=== PATIENT | female | born 1960 | race Caucasian/White ===

== ENCOUNTER → 2017-01-20 09:48 | Outpatient (CLI) | payer BC ==
[2012-04-01 09:52] VITALS: BMI 28.5
== END | disposition home or self-care (01) ==
LOC: D.MRI 01-19 10:30
DX: M77.11 Lateral epicondylitis, right elbow (principal)

== ENCOUNTER 2017-01-30 11:29 | Day surgery (SDC) | payer BC ==
[~2017-01-30] VITALS: Ht 162.6 cm; Wt 78.9 kg
[2017-01-30] MEDS ORDERED: OMEPRAZOLE40 MG PO (12:14)
[2017-01-30] MEDS ORDERED: MOBIC7.5 MG PO (12:15)
[2017-01-30] MEDS ORDERED: BYSTOLIC20 MG PO (12:15)
[2017-01-30] MEDS ORDERED: FUROSEMIDE20 MG PO (12:16)
[2017-01-30] MEDS ORDERED: K-TAB10 MEQ PO (12:17)
[2017-01-30 13:03] LABS: HEMATOCRIT 43.3 % (36.0-48.0); HEMOGLOBIN 14.1 g/dL (12-16); MCH 29.9 pg (26.0-34.0); MCHC 32.6 g/dL (31.0-37.0); MCV 91.9 fL (80.0-100.0); MEAN PLATELET VOLUME 10.2 fL (7.4-10.4); RBC 4.71 10x6/uL (4.00-5.40); RDW 14.7 % (11.5-14.5); WBC 9.2 10x3/uL (4.8-10.8)
[2017-01-30 13:43] LABS: ANION GAP 8.1 mmol/L (8-16); CALCIUM 9.6 mg/dL (8.5-10.1); CARBON DIOXIDE 32.4 mmol/L (21.0-32.0); CREATININE - SERUM 0.9 mg/dL (0.6-1.3); POTASSIUM - SERUM 4.5 mmol/L (3.5-5.1)
[2017-02-02 14:14] VITALS: BP 102/58; Ht 162.6 cm; Wt 78.9 kg
[2017-02-02] MEDS ORDERED: HYDROCODONE-APA1 TAB PO (17:09)
--- NOTE | 2017-02-02 19:03 | NUR ---
PHENERGAN 25 MG PO #[id number] CALLED TO [facility], TO PHARMACY RU[facility]
--- NOTE | 2017-02-06 14:19 | OP ---
PATIENT NAME: ROSALVA NOLAND MEDICAL RECORD: [id number] :56 LOCATION:D.[facility] ADMISSION DATE: SURGEON: SIERRA PEARSON MD DATE OF OPERATION: 02/02/2017 PREOPERATIVE DIAGNOSIS: Recalcitrant right lateral epicondylitis. POSTOPERATIVE DIAGNOSIS: Recalcitrant right lateral epicondylitis. PROCEDURES: Open excisional debridement to include tendon as well as bone with reapproximation on his lateral epicondylectomy with repair of the ruptured tendon. OPERATIVE SUMMARY IN DETAIL: After obtaining the appropriate preoperative orthopedic surgery consent as well as anesthetic consultation, evaluation and clearance, the patient was brought to the operating room and placed on the operating table in supine position. After general laryngeal mask was administered, tourniquet was placed about the proximal aspect of the right upper extremity. Right upper extremity was then prepped and draped in routine sterile fashion. The arm was elevated and exsanguinated, tourniquet inflated to 350 mmHg. An incision made directly over the lateral epicondyle. This was taken down to the mechanism deep, which was found to be avulsed from the bone. Elliptical incision of the tendinosis was performed. The lateral epicondyle was exposed in its entirety and a small sagittal saw was used to excise the lateral tip, creating a bleeding bone bed. At this point, a JuggerKnot from [email or web address] was utilized and pulled tightly. The sutures for which were used to reapproximate bleeding, clean, healthy tissue back to the lateral epicondyle. Wound was copiously irrigated and closed with 2-0 Vicryl followed by 4-0 Prolene in running fashion. Sterile dressings were applied. Tourniquet was deflated. The patient was awakened and taken to the recovery room in stable condition. All final needle and sponge counts were correct. TRANSINT:[id number] Voice Confirmation ID: [id number] DOCUMENT ID: [id number] SIERRA PEARSON MD at 1419 CC: [id number] DICTATION DATE: 02/06/17915 DOMESTIC HELPER: 02/06/17 1226 [facility] 02/02/17 [place] [address]
== END 2017-02-02 18:40 | disposition home or self-care (01) ==
LOC: D.OPS 11:29 → D.PAN 11:29 → D.OPS 02-02 11:15 → D.PAN 02-02 13:00 → D.OPS 02-02 15:15
PROVIDERS: Anesthesiology
DX: M77.11 Lateral epicondylitis, right elbow (principal); I10 Essential (primary) hypertension; Z01.812 Encounter for preprocedural laboratory examination

== ENCOUNTER 2017-02-22 12:57 | Inpatient (IN) | payer BC ==
[~2017-02-22] VITALS: Ht 162.6 cm; Wt 78.9 kg
[~2017-02-22 12:57] MED LIST: BYSTOLIC20 MG PO; FUROSEMIDE20 MG PO; HYDROCODONE-APA1 TAB PO; K-TAB10 MEQ PO; MOBIC7.5 MG PO; OMEPRAZOLE40 MG PO
[2017-02-22 14:21] LABS: BASOPHILS 0.2 % (0-2); EOSINOPHILS 3.2 % (0-7); HEMATOCRIT 40.6 % (36.0-48.0); HEMOGLOBIN 13.3 g/dL (12-16); IMMATURE GRANULOCYTES 0.2 % (0-5); MCH 29.9 pg (26.0-34.0); MCHC 32.8 g/dL (31.0-37.0); MCV 91.2 fL (80.0-100.0); MEAN PLATELET VOLUME 10.1 fL (7.4-10.4); NEUTROPHILS 69.4 % (40-80); PLATELET COUNT 253 10x3/uL (130-400); RBC 4.45 10x6/uL (4.00-5.40); RDW 14.2 % (11.5-14.5); WBC 13.6 10x3/uL (4.8-10.8)
[2017-02-22 14:32] LABS: INR 0.96 (0.85-1.17); PROTIME 12.6 SECONDS (11.6-15.0)
[2017-02-22 14:37] LABS: ALBUMIN 3.3 g/dL (3.4-5.0); ANION GAP 13.4 mmol/L (8-16); BILIRUBIN - TOTAL 0.26 mg/dL (0.2-1.3); CALCIUM 9.1 mg/dL (8.5-10.1); CARBON DIOXIDE 27.3 mmol/L (21.0-32.0); CREATININE - SERUM 0.9 mg/dL (0.6-1.3); MAGNESIUM - SERUM 2.2 mg/dL (1.8-2.4); POTASSIUM - SERUM 3.7 mmol/L (3.5-5.1); PROTEIN - SERUM 7.8 g/dL (6.4-8.2)
--- NOTE | 2017-02-22 15:15 | NUR ---
PT REPORT REC'D FROM GUS MAXWELL. ROOM READY AND AWAITING PT ARRIVAL.
[2017-02-22 17:52] VITALS: BMI 29.9
[2017-02-22 19:00] VITALS: BP 123/62
--- NOTE | 2017-02-22 19:35 | NUR ---
RECIEVED SHIFT REPORT. PT IS LYING IN BED. ALERT AND ORIENTED AND ABLE TO VERBALIZE NEEDS. IV IS PATENT AND SALINE LOC AT THIS TIME. PT IS AMBULATORY BUT WAS INSTRUCTED TO CALL FOR ANY ASSISTANCE NEEDED. DRESSING TO RIGHT ELBOW C/D/I. PT STATES PAIN IS 7/10. NO NEEDS ARE VERBALIZED AT THIS TIME. WILL CONTINUE TO MONITOR. VISITOR IS AT THE BEDSIDE. SIDE RAILS ARE UP X 2. BED IS IN LOWEST POSITION. CALL LIGHT IS WITHIN REACH.
--- NOTE | 2017-02-22 21:43 | NUR ---
SHIFT ASSESSMENT COMPLETED. PT C/O PAIN 04/30. ADMINISTERED PRESCRIBED PRN PERCOCET PER ORDER. DENIES FURTHER NEEDS. WILL MONITOR. VISITOR AT BEDSIDE. SIDE RAILS X 2. BED LOW. CALL LIGHT IN REACH.
[2017-02-23] VITALS: BP 112/53
[2017-02-23 04:00] VITALS: BP 137/58
--- NOTE | 2017-02-23 07:45 | NUR ---
PT ASSESSMENT COMPLETE AWAKE AND ALERT ORIENTED X 3 LUNGS CLEAR BILATERALLY HAS DRESSING NOTED TO RIGHT ELBOW. VOICES ALL NEEDS TO STAFF CALL LIGHT IN REACH FAMILY AT BEDSIDE. ALL ADLS WITH STANDBY ASSIST OF STAFF. HAS LEFT HAND SALINE LOCK NOTED 22 GA SITED PER PT FLOW NURSE LAST NIGHT. NPO FOR I&D OF RIGHT ELBO POST SURGICAL INFECTION SITE WITH DR PEARSON TODAY. WILL MONITOR. ALL QUESTIONS ANSWERED OR DEFERRED TO TUFTER OPERATOR AT BEDSIDE AT 0815.
[2017-02-23 08:27] VITALS: BP 134/52
--- NOTE | 2017-02-23 08:35 | NUR ---
PATIENT ALERT IN MID MADRIGAL POSITION VISITING WITH GUEST. NO SIGNS OF DISTRESS NOTED. SIDE RAILS UP X2. BED IN LOW POSITION. CALL LIGHT IN REACH.
[2017-02-23 11:49] VITALS: BP 112/58
--- NOTE | 2017-02-23 14:30 | NUR ---
Patient Name: ROSALVA NOLAND Admission Status: ER Accout number: [id number] Admission Date: 02-22-2017 : 1960 Admission Diagnosis: Attending: QAMAR Current LOS: 1 Anticipated DC Date: 02-26-2017 Planned Disposition: Home with Home Health Primary Insurance: [employer] O Discharge Planning Comments: CM MET WITH PATIENT REGARDING D/C NEEDS AND PLANS. PATIENT STATED SHE LIVES ALONE AND HER FRIEND (RICKIE) WILL DRIVE HER HOME AT DISCHARGE. PATIENT STATED SHE HAS 1 STEP TO ENTER HOME AND NO STAIRS INSIDE. PATIENTS PCP IS DR. TOMAS AND PHARMACY IS [facility]. PATIENT IS INDEPENDENT WITH HER CARE AND HAS A WALKER AND CANE AT HOME. PATIENT SIGNED THE JEREMIE FORM WITH [employer] AND CM IS WAITNG TO SEE IF HER INSURANCE IS ACCEPTED. CM WILL CONTINUE TO FOLLOW PATIENT WITH D/C NEEDS AND PLANS. PCP DR. TOMAS [facility] [phone] RICKIE YARBROUGH (FRIEND) [phone] Financial Retirement Plan Specialist: Meagan Mcgee Is the patient Alert and Oriented? Yes 0 * How many steps to enter\exit or inside your home? 1 0 * PCP DR. TOMAS 0 * Pharmacy [facility] 0 * Preadmission Environment Home Alone 0 * ADLs Independent 0 * Equipment Cane Walker 0 * List name and contact numbers for known caregivers / representatives who currently or will assist patient after discharge: RICKIE YARBROUGH (FRIEND) [phone] 0 * Community resources currently utilized Other 0 * Additional services required to return to the preadmission environment? Yes 0 * Can the patient safely return to the preadmission environment? Yes 0 * Has this patient been hospitalized within the prior 30 days at any hospital? No 0 Grand Total: 0
[2017-02-23 14:54] VITALS: Ht 162.6 cm; Wt 78.9 kg
[2017-02-23 15:17] VITALS: BP 97/64
--- NOTE | 2017-02-23 15:42 | NUR ---
RECIEVED FROM RECOVERY AWAKE AND ALERT WOUND VAC NOTED TO RIGHT ELBOW PT WITH O2 AT 3LPM PER NASAL CANULA TITRATE TO KEEP SATS GREATER THAN 92%
[2017-02-23 18:00] VITALS: BP 101/39
--- NOTE | 2017-02-23 19:00 | NUR ---
PATIENT IN BED WATCING TV. HOB 30 DEGREES. AAOX4. RR EVEN AND UNLABORED. 0 S/S OF DISTRESS. STATES PAIN IS A 12/10. IV TO LEFT HAND S/L. WOUND VAC TO RIGHT ELBOW. SCD'S IN ROOM BUT OFF. FRIEND AT BEDSIDE. SRX2. BED LOW. CALL LIGHT WITHIN REACH.
--- NOTE | 2017-02-23 20:00 | NUR ---
NORCO GIVEN FOR PAIN. PATIENT VERY WORRIED ABOUT HER IV. SHE "DOES NOT WANT IT TO GO BAD AND DOES NOT WANT TO GET STUCK AGAIN." SHE IS DEMANDING STEPS BE TAKEN TO PRESERVE IT. ARM BOARD PLACED BENEATH AND WRIST SECURED WITH KERLIX.
--- NOTE | 2017-02-24 02:00 | NUR ---
PATIENT VERY UPSET AND ANXIOUS. SHE IS TEARFUL STATING THAT SHE "DOES NOT HAVE ANY CONFIDENCE IN THE HOSPITAL OR DR. PEARSON." SHE WANTS TO KNOW HER CARE PLAN AND SAYS SHE "WANTS TO BE INVOLVED IN HER CARE." SHE IS ALSO UPSET THAT SHE DID NOT GET A PICC LINE AND HAD TO DEMAND TO SPEAK TO DR. PEARSON BEFORE THE PROCEDURE. PATIENT IS STATING THAT SHE WANTS TO "LEAVE THE HOSPITAL AND GO TO A DIFFERENT FACILIY." SPOKE WITH PATIENT FOR ABOUT 45 MINUTES. EXPLAINED TO PATIENT THAT THERE WAS A CARE PLAN FOR HER BUT THAT SHE HAD TO BE PATIENT WITH THE PROCESS.
--- NOTE | 2017-02-24 02:45 | NUR ---
PERCOCET GIVEN FOR PAIN.
[2017-02-24 04:00] VITALS: BP 96/34
[2017-02-24 08:48] VITALS: BP 122/57
[2017-02-24 09:12] LABS: BASOPHILS 0.3 % (0-2); EOSINOPHILS 5.6 % (0-7); HEMATOCRIT 38.3 % (36.0-48.0); HEMOGLOBIN 12.4 g/dL (12-16); IMMATURE GRANULOCYTES 0.2 % (0-5); LYMPHOCYTES 22.1 % (15-50); MCH 29.7 pg (26.0-34.0); MCHC 32.4 g/dL (31.0-37.0); MCV 91.8 fL (80.0-100.0); MEAN PLATELET VOLUME 9.6 fL (7.4-10.4); MONOCYTES 5.2 % (2-11); NEUTROPHILS 66.6 % (40-80); PLATELET COUNT 247 10x3/uL (130-400); RBC 4.17 10x6/uL (4.00-5.40); RDW 14.2 % (11.5-14.5)
[2017-02-24 09:17] LABS: WBC 9.1 10x3/uL (4.8-10.8)
[2017-02-24 12:35] VITALS: BP 85/46
--- NOTE | 2017-02-24 13:25 | NUR ---
CM WAS CALLED TO PATIENTS ROOM NUMEROUS TIMES THIS AM. PATIENT STATED SHE WANTED TO SPEAK TO [place] AND CM CALLED KAY AND SHE AGREED TO CALL PATIENT. WHEN KAY CALLED PATIENT THE PATIENT STATED SHE DID NOT WANT TO TALK SHE WAS ABOUT TO EAT TO CALL BACK. PATIENT WAS UPSET BECAUSE HER INSURANCE WAS ONLY PAYING 80 % OF HOME HEALTH AND SHE WOULD OWE 20%. CM EXPLAINED WE COULD NOT DO ANYTHING ABOUT THAT. PATIENT STATED THAT SHE KNEW IF WE WOULD CONTACT THE RIGHT PERSON THEY WOULD THROW OUT THE 20%. PATIENT STATED THAT SHE KNEW HOW ALL THIS WORKED. PATIENT ALSO STATED SHE WANTED TO GO HOME TODAY AND SHE WAS FED UP WITH STAYING HERE. CM EXPLAINED THAT WE NEEDED TO KNOW WHAT THE CULTURE WAS GROWING TO HAVE THE CORRECT IV ABX. PATIENT STATED SHE COULD GO HOME AND WE COULD WAIT ON THE GROWTH!!! ANGEL SPOKE WITH HER AGAIN REGARDING THE NEED FOR THE CORRECT ABX THERAPY AND SHE STATED I AM JUST GOING TO TOUGH IT OUT AND STAY HERE. THEN SHE ASKED ABOUT A SNF AND WANTED [facility] AND ANGEL CALLED AND IS OUT OF NETWORK FOR THEM. ANGEL SPOKE WITH PATIENT AND SHE STATED SHE WOULD JUST GO HOME AND HAVE SOMEONE HELP HER. PATIENTS FRIEND STATED OUTSIDE OF HER ROOM THAT SHE WAS SORRY FOR HER FRIENDS ATTITUDE. CM STATED THAT WAS OK DON'T WORRY ABOUT IT. ANGEL HAS CONTACTED [facility] ([facility]) FOR A TYPEWRITER ASSEMBLY AND PARTS INSPECTOR FROM HER INSURANCE TO CONTACT HER. ANGEL WILL CONTINUE TO FOLLOW PATIENT WITH D/C NEEDS AND PLANS.
[2017-02-24 17:02] VITALS: BP 110/50
--- NOTE | 2017-02-24 19:40 | NUR ---
RECIEVED SHIFT REPORT. PT IS LYING IN BED. ALERT AND ORIENTED AND ABLE TO VERBALIZE NEEDS. IV IS PATENT AND FLUIDS AND SALINE LOC AT THIS TIME. PT IS AMBULATORY BUT WAS INSTRUCTED TO CALL FOR ANY ASSISTANCE NEEDED. WOUND VAC TO RIGHT ELBOW INTACT AND DRESSING ALL C/D/I. PT STATES PAIN IS 8/10. ISOLATION PRECAUTIONS ARE IN PLACE. SCD'S ARE OFF AT THIS TIME. NO NEEDS ARE VERBALIZED AT THIS TIME. VISITOR IS AT THE BEDSIDE. SIDE RAILS ARE UP X 2. BED IS IN LOWEST POSITION. CALL LIGHT IS WITHIN REACH.
--- NOTE | 2017-02-24 20:24 | NUR ---
SHIFT ASSESSMENT COMPLETED. ANTIBIOTIC HUNG PER ORDER. PT C/O PAIN 04/30. ADMINISTERED PRESCRIBED PRN PERCOCET PER ORDER. NO FURTHER NEEDS AT THIS TIME. WILL MONITOR. VISITOR AT BEDSIDE. SIDE RAILS X 2. BED LOW. CALL LIGHT IN REACH.
[2017-02-25 00:04] VITALS: BP 109/55
[2017-02-25 04:00] VITALS: BP 105/55
[2017-02-25 06:21] LABS: ANION GAP 9.1 mmol/L (8-16); CALCIUM 8.7 mg/dL (8.5-10.1); CARBON DIOXIDE 31.1 mmol/L (21.0-32.0); CREATININE - SERUM 0.9 mg/dL (0.6-1.3); POTASSIUM - SERUM 4.2 mmol/L (3.5-5.1)
--- NOTE | 2017-02-25 07:15 | NUR ---
PATIENT RESTING QUIETLY IN HER BED WITH HER EYES CLOSED. NO S/S OF DISTRESS NOTED. FRIEND AT PATIENT'S BEDISDE. CONTACT ISOLATION PRECAUTIONS IN PLACE. CALL LIGHT IN PATIENT'S REACH. WILL MONITOR PATIENT.
[2017-02-25 08:39] VITALS: BP 123/54
--- NOTE | 2017-02-25 08:45 | NUR ---
PATIENT RESTING IN HER BED. FRIEND AT THE BEDSIDE. PATIENT IS AWAKE, ALERT, AND ORIENTED X4. NO COMPLAINTS OF PAIN AT PRESENT TIME. ASSESSMENT COMPLETED. SEE FLOWSHEET FOR DETAILS. SCHEDULED VANCOMYCIN IVPB AND SCHEDULED PROTONIX IV GIVEN TO PATIENT. PATIENT DENIES ANY NEEDS AT PRESENT TIME. WOUND VAC IN PLACE TO PATIENT'S RIGHT ELBOW. CALL LIGHT IN PATIENT'S REACH. WILL MONITOR PATIENT.
[2017-02-25] MEDS ORDERED: HYDROCODONE-APA1 TAB PO (09:02)
[2017-02-25] MEDS ORDERED: Ancef 2 GM/Dextrose IV (14:45)
--- NOTE | 2017-02-25 14:55 | NUR ---
PATIENT SITTING UP ON THE SIDE OF THE BED. PATIENT IS EXCITED ABOUT GETTING TO GO HOME THIS AFTERNOON. PATIENT COMPLAINS OF PAIN IN RIGHT ELBOW WHERE HER INCISION IS. PAIN LEVEL A "4" ON A 0-10 SCALE. PRN PERCOCET GIVEN TO PATIENT FOR PAIN. CALL LIGHT IN PATIENT'S REACH. WILL MONITOR.
--- NOTE | 2017-02-25 15:47 | NUR ---
CM REASSESSMENT NOTE: PATIENT IS DISCHARGING HOME TODAY WITH [facility] TO DO IV ABX AND WOUND VAC CARE. WOUND VAC HAS BEEN CHANGED TODAY AND [facility] AWARE OF THAT. CM HAS CONTACTED [facility] AND THEY HAVE SPOKE WITH [employer] [employer]. PATIENT AWARE TO HAVE ANOTHER PERSON THAT IS TEACHABLE FOR THE IV ABX THERE TONIGHT. [employer] SUPPLIED THE WOUND VAC.
--- NOTE | 2017-02-25 15:57 | NUR ---
WOUND CARE/WOUND VAC DRESSING CHANGE: WOUND VAC DRESSING CHANGE WOUND TYPE: SURGICAL WOUND LOCATION: RIGHT ELBOW WOUND AGE IN MONTHS: DEBRIDEMENT ATTEMPTED IN LAST 10 DAYS? DATE/TYPE: SERIAL DEBRIDEMENTS REQUIRED? NO MEASUREMENT DATE: 02/25/17 4.5CM X 1.5CM X 1CM FULL THICKNESS? YES MUSCLE, TENDON OR BONE EXPOSED? NO UNDERMINING? NO TUNNELING/SINUS? NO APPEARANCE OF WOUND BED : RED/BEEFY EXUDATE (AMOUNT, COLOR, ODOR): SMALL/BLOODY/ NO ODOR FOAM TYPE: BLACK # OF PIECES USED: 1 PC EDUCATION: FUNCTIONS OF WOUND VAC/USE OF HOME VAC/ON/OFF/PAUSE/HOW TO CHANGE CANISTERS/BATTERY LIFE/HOW TO CHARGE/TROUBLE SHOOTING: ALARMS /END OF THERAPY (WHAT TO RETURN AND HOW TO SEND TO [facility]) PT IS VERY PERSEPTIVE TO ALL TEACHING.
--- NOTE | 2017-02-25 16:01 | NUR ---
SALINE LOCK DC'D FROM PATIENT'S LEFT HAND. CATHETER TIP STILL INTACT. BANDAID APPLIED.
--- NOTE | 2017-02-25 16:05 | NUR ---
DISCHARGE INSTRUCTIONS VERBALIZED TO PATIENT. PATIENT VERBALIZED UNDERSTANDING AND SIGNED DISCHARGE SHEETS. HYDROCODONE PRESCRIPTION GIVEN TO PATIENT.
--- NOTE | 2017-02-25 16:26 | NUR ---
PATIENT DISCHARGED VIA WHEELCHAIR TO THE CAR. PATIENT'S FRIEND HERE TO DRIVE PATIENT HOME.
--- NOTE | 2017-03-06 15:24 | OP ---
PATIENT NAME: ROSALVA NOLAND MEDICAL RECORD: [id number] :56 LOCATION:[id number] ADMISSION DATE:02/22/17 SURGEON: SIERRA PEARSON MD DATE OF OPERATION: 02/23/2017 PREOPERATIVE DIAGNOSIS: Postoperative infection of the right elbow and joint. POSTOPERATIVE DIAGNOSES: Postoperative infection of the right elbow and joint -- septic elbow arthritis, right. PROCEDURES: 1. Excisional debridement of septic olecranon elbow arthritis. 2. Application of wound VAC. SURGEON: Sierra Pearson MD ANESTHESIA: General. INTRAOPERATIVE COMPLICATIONS: None. SUMMARY OF PATHOLOGIC FINDINGS: Unfortunately, the infection did go down into the elbow joint itself requiring extensive debridement, removal of previously placed sutures and placement of the wound VAC. OPERATIVE SUMMARY IN DETAIL: After obtaining the appropriate preoperative orthopedic surgery consent, as well as anesthetic consultation, evaluation and clearance, the patient was brought to the operating room and placed on the operating table in supine position. After general laryngeal mask was administered, the patient's right upper extremity was prepped and draped in a routine sterile fashion. The previously made incision was opened up and purulence was immediately noted. This was cultured. The incision was carried down to the depths of the wound, which clearly showed the lateral condylar cartilage. All necrotic appearing tissue was removed both sharply with the scalpel, as well as curettage and rongeur. The elbow itself was irrigated copiously using a bulb syringe to irrigate the entire elbow, both the anteriorly and posteriorly. When the purulent-appearing synovial fluid returned clear water, the capsule of the elbow was closed and given the amount of soft tissue damage, I felt that a wound VAC was most appropriate at this point. The wound VAC was applied, the pressure was set to 125 mm continuous suction at medium intensity. The patient at this point was awakened and taken to recovery room in stable condition. All final needle and sponge counts were correct. TRANSINT:[id number] Voice Confirmation ID: [id number] DOCUMENT ID: [id number] SIERRA PEARSON MD at 1524 CC: [id number] DICTATION DATE: 03/05/17 1356 SENIOR USER EXPERIENCE ARCHITECT: 03/06/17 0130 DIS IN 02/25/17 [id number] [place] [address]
== END 2017-02-25 16:26 | disposition home health service (06) | DRG 857 ==
LOC: D.ER 12:57 → OBSVTIME 14:45 → D.MS 14:45
PROVIDERS: Emergency Medicine; ADMIT Orthopaedic Surgery
PROC: 0RBL0ZZ Excision of Right Elbow Joint, Open Approach (ICD-10-PCS; 2017-02-23)
PROC: 05H633Z Insertion of Infusion Device into Left Subclavian Vein, Percutaneous Approach (ICD-10-PCS; principal; 2017-02-24)
DX: T81.4XXA Infection following a procedure, initial encounter (principal); M00.021 Staphylococcal arthritis, right elbow; B95.62 Methicillin resistant Staphylococcus aureus infection as the cause of diseases classified elsewhere; I10 Essential (primary) hypertension; J45.909 Unspecified asthma, uncomplicated

== ENCOUNTER → 2017-03-02 18:23 | Outpatient (CLI) | payer BC ==
[2017-02-23 14:54] VITALS: BMI 29.8
[~2017-03-02 18:23] MED LIST changes: +Ancef 2 GM/Dextrose IV
[2017-03-02 18:35] LABS: BASOPHILS 0.3 % (0-2); EOSINOPHILS 5.6 % (0-7); HEMATOCRIT 38.8 % (36.0-48.0); HEMOGLOBIN 12.8 g/dL (12-16); IMMATURE GRANULOCYTES 0.3 % (0-5); MCH 29.9 pg (26.0-34.0); MCV 90.7 fL (80.0-100.0); MEAN PLATELET VOLUME 9.8 fL (7.4-10.4); MONOCYTES 6.2 % (2-11); NEUTROPHILS 64.6 % (40-80); RBC 4.28 10x6/uL (4.00-5.40); RDW 13.9 % (11.5-14.5); WBC 11.6 10x3/uL (4.8-10.8)
[2017-03-02 18:59] LABS: C-REACTIVE PROTEIN 1.1 mg/dL (0.0-0.9); CREATININE - SERUM 0.9 mg/dL (0.6-1.3)
[2017-03-02 19:44] LABS: PLATELET COUNT 297 10x3/uL (130-400)
[2017-03-02 19:47] LABS: ERYTHROCYTE SEDIMENTATION RATE 58 mm/hr (0-30)
== END | disposition home or self-care (01) ==
LOC: D.LABREF 18:23
PROVIDERS: Orthopaedic Surgery
DX: T81.4XXA Infection following a procedure, initial encounter (principal)

== ENCOUNTER → 2017-03-09 19:12 | Outpatient (CLI) | payer BC ==
[2017-02-23 14:54] VITALS: BMI 29.8
[2017-03-09 21:00] LABS: BASOPHILS 0.5 % (0-2); EOSINOPHILS 5.2 % (0-7); HEMATOCRIT 44.2 % (36.0-48.0); HEMOGLOBIN 14.3 g/dL (12-16); IMMATURE GRANULOCYTES 0.2 % (0-5); MCH 29.5 pg (26.0-34.0); MCHC 32.4 g/dL (31.0-37.0); MCV 91.3 fL (80.0-100.0); MEAN PLATELET VOLUME 10.3 fL (7.4-10.4); MONOCYTES 8.1 % (2-11); PLATELET COUNT 270 10x3/uL (130-400); RBC 4.84 10x6/uL (4.00-5.40); RDW 14.4 % (11.5-14.5); WBC 9.3 10x3/uL (4.8-10.8)
[2017-03-09 21:17] LABS: C-REACTIVE PROTEIN 0.6 mg/dL (0.0-0.9); CREATININE - SERUM 0.9 mg/dL (0.6-1.3)
[2017-03-09 22:02] LABS: ERYTHROCYTE SEDIMENTATION RATE 30 mm/hr (0-30)
== END | disposition home or self-care (01) ==
LOC: D.LABREF 19:12
PROVIDERS: Orthopaedic Surgery
DX: T81.4XXA Infection following a procedure, initial encounter (principal)

== ENCOUNTER → 2017-03-16 16:23 | Outpatient (CLI) | payer BC ==
[2017-02-23 14:54] VITALS: BMI 29.8
[2017-03-16 17:18] LABS: C-REACTIVE PROTEIN 1.1 mg/dL (0.0-0.9); CREATININE - SERUM 0.8 mg/dL (0.6-1.3)
== END | disposition home or self-care (01) ==
LOC: D.LABREF 16:23
PROVIDERS: Student in an Organized Health Care Education/Training Program
DX: T81.4XXA Infection following a procedure, initial encounter (principal); M86.121 Other acute osteomyelitis, right humerus; Z51.81 Encounter for therapeutic drug level monitoring

== ENCOUNTER → 2017-03-23 18:25 | Outpatient (CLI) | payer BC ==
[2017-02-23 14:54] VITALS: BMI 29.8
[2017-03-23 19:04] LABS: BASOPHILS 0.4 % (0-2); EOSINOPHILS 7.3 % (0-7); HEMATOCRIT 40.6 % (36.0-48.0); HEMOGLOBIN 13.4 g/dL (12-16); IMMATURE GRANULOCYTES 0.1 % (0-5); LYMPHOCYTES 28.2 % (15-50); MCH 30.2 pg (26.0-34.0); MCV 91.4 fL (80.0-100.0); MEAN PLATELET VOLUME 10.7 fL (7.4-10.4); MONOCYTES 7.5 % (2-11); NEUTROPHILS 56.5 % (40-80); PLATELET COUNT 249 10x3/uL (130-400); RBC 4.44 10x6/uL (4.00-5.40); RDW 14.4 % (11.5-14.5); WBC 9.4 10x3/uL (4.8-10.8)
[2017-03-23 20:20] LABS: ERYTHROCYTE SEDIMENTATION RATE 45 mm/hr (0-30)
== END | disposition home or self-care (01) ==
LOC: D.LABREF 18:25
PROVIDERS: Student in an Organized Health Care Education/Training Program
DX: T81.4XXA Infection following a procedure, initial encounter (principal); B95.61 Methicillin susceptible Staphylococcus aureus infection as the cause of diseases classified elsewhere; Z45.2 Encounter for adjustment and management of vascular access device

== ENCOUNTER → 2017-03-30 14:16 | Outpatient (CLI) | payer BC ==
[2017-02-23 14:54] VITALS: BMI 29.8
[2017-03-30 15:28] LABS: BASOPHILS 0.4 % (0-2); EOSINOPHILS 4.7 % (0-7); HEMATOCRIT 40.9 % (36.0-48.0); HEMOGLOBIN 13.3 g/dL (12-16); IMMATURE GRANULOCYTES 0.2 % (0-5); LYMPHOCYTES 24.4 % (15-50); MCHC 32.5 g/dL (31.0-37.0); MCV 92.3 fL (80.0-100.0); MEAN PLATELET VOLUME 10.8 fL (7.4-10.4); MONOCYTES 8.5 % (2-11); NEUTROPHILS 61.8 % (40-80); PLATELET COUNT 207 10x3/uL (130-400); RBC 4.43 10x6/uL (4.00-5.40); RDW 14.6 % (11.5-14.5); WBC 9.2 10x3/uL (4.8-10.8)
[2017-03-30 16:03] LABS: CREATININE - SERUM 0.8 mg/dL (0.6-1.3)
[2017-03-30 16:50] LABS: ERYTHROCYTE SEDIMENTATION RATE 18 mm/hr (0-30)
== END | disposition home or self-care (01) ==
LOC: D.LABREF 14:16
PROVIDERS: Orthopaedic Surgery
DX: T81.4XXA Infection following a procedure, initial encounter (principal); M86.121 Other acute osteomyelitis, right humerus

== ENCOUNTER → 2017-04-06 13:19 | Outpatient (CLI) | payer BC ==
[2017-02-23 14:54] VITALS: BMI 29.8
[2017-04-06 14:02] LABS: C-REACTIVE PROTEIN 5.5 mg/dL (0.0-0.9); CREATININE - SERUM 0.7 mg/dL (0.6-1.3)
== END | disposition home or self-care (01) ==
LOC: D.LABREF 13:19
PROVIDERS: Orthopaedic Surgery
DX: T81.4XXA Infection following a procedure, initial encounter (principal); M86.121 Other acute osteomyelitis, right humerus; I10 Essential (primary) hypertension

== ENCOUNTER → 2017-05-01 14:30 | Outpatient (CLI) | payer BC ==
[2017-02-23 14:54] VITALS: BMI 29.8
[2017-05-01 15:00] LABS: BASOPHILS 0.4 % (0-2); EOSINOPHILS 5.7 % (0-7); HEMATOCRIT 42.1 % (36.0-48.0); HEMOGLOBIN 13.8 g/dL (12-16); IMMATURE GRANULOCYTES 0.1 % (0-5); LYMPHOCYTES 29.1 % (15-50); MCH 29.6 pg (26.0-34.0); MCHC 32.8 g/dL (31.0-37.0); MCV 90.3 fL (80.0-100.0); MEAN PLATELET VOLUME 10.3 fL (7.4-10.4); MONOCYTES 6.2 % (2-11); NEUTROPHILS 58.5 % (40-80); RBC 4.66 10x6/uL (4.00-5.40); RDW 14.5 % (11.5-14.5)
[2017-05-01 15:02] LABS: PLATELET COUNT 267 10x3/uL (130-400)
[2017-05-01 15:08] LABS: C-REACTIVE PROTEIN 1.3 mg/dL (0.0-0.9); CALC OSMOLALITY 279 mosm/kg (275-300); CALCIUM 9.3 mg/dL (8.5-10.1); CARBON DIOXIDE 31.2 mmol/L (21.0-32.0); CHLORIDE - SERUM 102 mmol/L (98-107); CREATININE - SERUM 0.8 mg/dL (0.6-1.3); GLUCOSE 90 mg/dL (74-106); POTASSIUM - SERUM 4.3 mmol/L (3.5-5.1); SODIUM 140 mmol/L (136-145); UREA NITROGEN 14 mg/dL (7-18); eGFR NON AFRICAN AMERICAN 78 mL/min (90-120)
[2017-05-01 16:11] LABS: ERYTHROCYTE SEDIMENTATION RATE 35 mm/hr (0-30)
== END | disposition home or self-care (01) ==
LOC: D.LABREF 14:30
PROVIDERS: Student in an Organized Health Care Education/Training Program
DX: L98.8 Other specified disorders of the skin and subcutaneous tissue (principal); Z79.2 Long term (current) use of antibiotics

== ENCOUNTER → 2017-05-15 10:56 | Outpatient (CLI) | payer BC ==
[2017-02-23 14:54] VITALS: BMI 29.8
[2017-05-15 14:09] LABS: CREATININE - SERUM 0.8 mg/dL (0.6-1.3); VANCOMYCIN - TROUGH 10.2 ug/mL (10.0-20.0)
== END | disposition home or self-care (01) ==
LOC: D.LABREF 10:56
PROVIDERS: Internal Medicine Infectious Disease
DX: T81.4XXA Infection following a procedure, initial encounter (principal)

== ENCOUNTER → 2017-05-18 11:35 | Outpatient (CLI) | payer BC ==
[2017-02-23 14:54] VITALS: BMI 29.8
[2017-05-18 12:55] LABS: ANION GAP 11.8 mmol/L (8-16); BASOPHILS 0.4 % (0-2); C-REACTIVE PROTEIN 2.2 mg/dL (0.0-0.9); CALCIUM 9.1 mg/dL (8.5-10.1); CARBON DIOXIDE 30.1 mmol/L (21.0-32.0); CREATININE - SERUM 0.9 mg/dL (0.6-1.3); EOSINOPHILS 7.5 % (0-7); HEMATOCRIT 36.2 % (36.0-48.0); HEMOGLOBIN 11.6 g/dL (12-16); IMMATURE GRANULOCYTES 0.2 % (0-5); LYMPHOCYTES 27.5 % (15-50); MCH 29.4 pg (26.0-34.0); MCV 91.6 fL (80.0-100.0); MONOCYTES 8.3 % (2-11); NEUTROPHILS 56.1 % (40-80); PLATELET COUNT 222 10x3/uL (130-400); POTASSIUM - SERUM 3.9 mmol/L (3.5-5.1); RBC 3.95 10x6/uL (4.00-5.40); RDW 14.2 % (11.5-14.5); VANCOMYCIN - TROUGH 15.3 ug/mL (10.0-20.0); WBC 5.6 10x3/uL (4.8-10.8)
== END | disposition home or self-care (01) ==
LOC: D.LABREF 11:35
PROVIDERS: Internal Medicine Infectious Disease
DX: T81.4XXA Infection following a procedure, initial encounter (principal)

== ENCOUNTER → 2017-05-25 13:18 | Outpatient (CLI) | payer BC ==
[2017-02-23 14:54] VITALS: BMI 29.8
[2017-05-25 14:17] LABS: CALC OSMOLALITY 286 mosm/kg (275-300); CALCIUM 8.7 mg/dL (8.5-10.1); CARBON DIOXIDE 25.8 mmol/L (21.0-32.0); CHLORIDE - SERUM 107 mmol/L (98-107); CREATININE - SERUM 0.8 mg/dL (0.6-1.3); GLUCOSE 78 mg/dL (74-106); POTASSIUM - SERUM 4.3 mmol/L (3.5-5.1); SODIUM 143 mmol/L (136-145); UREA NITROGEN 21 mg/dL (7-18); VANCOMYCIN - TROUGH 11.1 ug/mL (10.0-20.0); eGFR NON AFRICAN AMERICAN 78 mL/min (90-120)
[2017-05-25 14:19] LABS: C-REACTIVE PROTEIN < 0.2 mg/dL (0.0-0.9)
[2017-05-25 15:44] LABS: ERYTHROCYTE SEDIMENTATION RATE 25 mm/hr (0-30)
== END | disposition home or self-care (01) ==
LOC: D.LABREF 13:18
PROVIDERS: Orthopaedic Surgery
DX: T81.4XXA Infection following a procedure, initial encounter (principal); M86.8X2 Other osteomyelitis, upper arm; A49.02 Methicillin resistant Staphylococcus aureus infection, unspecified site

== ENCOUNTER → 2017-06-02 00:47 | Outpatient (CLI) | payer BC ==
[2017-02-23 14:54] VITALS: BMI 29.8
== END | disposition home or self-care (01) ==
LOC: D.LABREF 00:47
DX: T81.4XXA Infection following a procedure, initial encounter (principal)

== ENCOUNTER → 2019-11-28 11:00 | Outpatient (CLI) | payer BC ==
[2017-02-23 14:54] VITALS: BMI 29.8
== END | disposition home or self-care (01) ==
LOC: D.RAD 10:56
PROVIDERS: ATTEND Nurse Practitioner Family
DX: R05 Cough (principal); R06.02 Shortness of breath